=== PATIENT | male | born 1985 | race Caucasian/White ===

== ENCOUNTER 2017-10-23 10:32 | Emergency (ER) | payer OTHER ==
[~2017-10-23] VITALS: Ht 177.8 cm; Wt 97.5 kg
[~2017-10-23 10:32] MED LIST: SARAFEM20 MG PO; TRAMADOL 50 MG50 MG PO; XANAX1 MG PO; ZOLPIDEM TARTRA10 MG PO
[2017-10-23 10:40] VITALS: BP 114/64
[2017-10-23] MEDS ORDERED: CLONAZEPAM 0.50.5 M1 PO (10:42)
[2017-10-23] MEDS ORDERED: LATUDA60 MG PO (10:42)
[2017-10-23] MEDS ORDERED: TRAMADOL 50 MG50 MG PO (11:44)
== END 2017-10-23 12:05 | disposition home or self-care (01) ==
LOC: ER 10:32
DX: M54.6 Pain in thoracic spine (principal); M62.830 Muscle spasm of back; F41.9 Anxiety disorder, unspecified

== ENCOUNTER 2018-01-15 14:52 | Emergency (ER) | payer OTHER ==
[~2018-01-15] VITALS: Ht 177.8 cm; Wt 90.7 kg
[~2018-01-15 14:52] MED LIST changes: +CLONAZEPAM 0.50.5 M1 PO; +LATUDA60 MG PO
[2018-01-15 15:12] LABS: ABSOLUTE NEUTROPHILS 7.1 thou/uL (1.4-8.2); BASOPHILS 0.5 % (0.0-2.0); HEMATOCRIT 41.1 % (42.0-52.0); HEMOGLOBIN 14.5 gm/dL (14.0-18.0); LYMPHOCYTES 14.9 % (24.0-44.0); MCH 30.7 pg (26.0-34.0); MCHC 35.3 g/dL (28.0-37.0); MONOCYTES 7.1 % (1.0-8.0); PLATELET COUNT 232 thou/uL (150-400); POLYS 74.5 % (36.0-66.0); RBC 4.72 mil/uL (4.50-6.00); RDW 12.8 % (10.5-14.5); WBC 9.5 thou/uL (4.0-11.0)
[2018-01-15 15:21] LABS: CALCIUM 8.5 mg/dL (8.5-10.1); CREATININE 1.1 mg/dL (0.7-1.3); POTASSIUM 4.1 mmol/L (3.5-5.1)
[2018-01-15 15:24] LABS: SALICYLATE < 2.8 mg/dL (2.8-20.0)
[2018-01-15 15:27] LABS: ALBUMIN 3.7 g/dL (3.4-5.0); TOTAL BILIRUBIN 0.5 mg/dL (<0.1-1.0)
[2018-01-15 16:14] LABS: URINE BILIRUBIN NEGATIVE (Negative); URINE BLOOD NEGATIVE (Negative); URINE CLARITY CLEAR; URINE COLOR YELLOW; URINE GLUCOSE-RANDOM* NEGATIVE (Negative); URINE KETONES NEGATIVE (Negative); URINE NITRITE-REFLEX NEGATIVE (Negative); URINE PROTEIN (DIPSTICK) NEGATIVE (Negative); URINE SPECIFIC GRAVITY 1.015 (1.005-1.035)
[2018-01-15 16:17] LABS: URINE LEUKOCYTES-REFLEX TRACE (Negative)
[2018-01-15 16:23] LABS: AMP/METHAMP Negative (Negative); BARBITURATES Negative (Negative); BENZODIAZEPINES Negative (Negative); COCAINE Negative (Negative); METHADONE Negative (Negative); OPIATES Negative (Negative); PCP Negative (Negative)
[2018-01-15 16:25] VITALS: BP 111/81
[2018-01-15] MEDS ORDERED: TRIAMCINOLONE A80 GM TOP (17:02)
== END 2018-01-15 17:16 | disposition home or self-care (01) ==
LOC: ER 14:52
PROVIDERS: Physician Assistant
DX: L25.9 Unspecified contact dermatitis, unspecified cause (principal); R41.0 Disorientation, unspecified; F51.5 Nightmare disorder; R06.02 Shortness of breath; F41.9 Anxiety disorder, unspecified